=== PATIENT | male | born 1955 | race Caucasian/White ===

== ENCOUNTER 2017-05-31 13:31 | Emergency (ER) | payer SELFPAY ==
[~2017-05-31] VITALS: Ht 167.6 cm; Wt 60.0 kg
[~2017-05-31 13:31] MED LIST: BACT800T5 PO; CEPH500C3 PO
[2017-05-31 13:32] VITALS: BP 158/76; PULSE 97; RESP 14; TEMP 97.7; O2SAT 97
[2017-05-31] MEDS ORDERED: BACT800T5 PO (14:56)
--- NOTE | 2017-05-31 14:56 | PD ---
HPI Chief Complaint: ENT Complaint Time Seen by Provider: 14:31 Travel History International Travel<30 days: No Contact w/Intl Traveler<30days: No Traveled to known affect area: No History of Present Illness HPI 62-year-old male presents to the emergency department with complaint of blood coming from his ear with worsening over the past 2 days. Said he stuck a Q-tip in his ear the other day and since then he has seen a little bit of blood on the tip of his finger. This morning when he woke up he noticed blood on his pillow. He says he thinks there was a small piece of glass on the Q-tip when he used it. Reports history of cerumen impaction and uses an ear wax remover. Reports history of left tympanic membrane rupture as a child. he denies fever, vomiting, change in hearing, ear pain, sore throat, nasal congestion. Reports his ear feels clogged. No known aggravating or relieving factors. Symptoms are mild in severity. Primary care provider is the [place] [facility]. No known allergies. Denies significant past medical history. Has no other medical complaints. No other modifying factors or associated signs and symptoms. PFSH Past Medical History Arthritis: Yes Tetanus Vaccination: < 5 Years ?: Not Past Surgical History Surgical History: No Previous Surgery Social History Alcohol Use: Yes (BEER RUM DAILY) Tobacco Use: Yes (1 PPD) Substance Use: Yes (MARIJUANA) Allergies-Medications (Allergen,Severity, Reaction): Coded Allergies: No Known Allergies (Unverified Adverse Reaction, Unknown, 05/31/17) Reported Meds & Prescriptions Reported Meds & Active Scripts Active Bactrim DS (Sulfamethoxazole-Trimethoprim) 800-160 Mg Tab 1 Tab PO BID 7 Days Review of Systems Except as stated in HPI: all other systems reviewed are Neg Physical Exam Narrative GENERAL: Well-nourished, well-developed male patient, in no acute distress; afebrile, nontoxic-appearing SKIN: Warm and dry. No rash. HEAD: Atraumatic. Normocephalic. EYES: Pupils equal and round. No scleral icterus. No injection or drainage. ENT: Mucosa pink and moist. No erythema or exudates. No uvular edema. No uvular , palatal, or tonsillar deviation. Airway patent. EARS: Bilateral pinnae and external canals appear within normal limits. Bilateral tympanic membranes without erythema, dullness or perforation; scarring noted to the left TM. Left ear canal with bright red drainage noted; erythema noted to the lower aspect of the ear canal. NECK: Trachea midline. No lymphadenopathy. CARDIOVASCULAR: Regular rate RESPIRATORY: No accessory muscle use. GASTROINTESTINAL: Flat. MUSCULOSKELETAL: No obvious deformities. No clubbing. No cyanosis. No edema. NEUROLOGICAL: Awake and alert. Oriented 3. No obvious cranial nerve deficits. Motor grossly within normal limits. Normal speech. Moves all extremities. 5/5 strength to all extremities. PSYCHIATRIC: Appropriate mood and affect; insight and judgment normal. Data Data Last Documented VS Vital Signs Date Time Temp Pulse Resp B/P (MAP) Pulse Ox O2 Delivery O2 Flow Rate FiO2 05/31/17 13:32 97.7 97 14 158/76 (103) 97 Orders Orders Ed Discharge Order (05/31/17 14:57) [facility] Medical Decision Making Medical Screen Exam Complete: Yes Emergency Medical Condition: Yes Medical Record Reviewed: Yes Differential Diagnosis Cerumen impaction, trauma to the ear canal, eardrum perforation, bleeding from left ear Narrative Course 62-year-old male with bleeding from his left ear. I removed a small clump of bloody, wax from his ear. I cannot determine the source of where the bleeding is coming from. The tympanic membrane is intact and without perforation. I discussed not putting anything in the ear and following up with ENT as needed. I do not see any signs of infection and feel that antibiotics are not necessary , but the patient feels better taking antibiotics and is requesting a prescription. Bactrim prescribed for home secondary to soft tissue injury and/ or infection of the ear canal. Instructed patient to follow up with primary care provider. Patient verbalizes understanding and agreement with treatment plan. Patient is medically cleared and stable for discharge. Discussed reasons to return to the emergency department. Patient agrees with treatment plan. The patients vital signs are stable and the patient is stable for outpatient follow-up and treatment. Patient discharged home, stable and in no acute distress. Diagnosis Primary Impression: Bleeding from left ear Referrals: Ear / Nose / Throat Specialist Primary Care Physician Patient Instructions: General Instructions Additional Instructions: Ibuprofen or Tylenol as directed and as needed to reduce pain and fever [id number] antihistamines or decongestants as directed and as needed for symptom management Avoid getting water in the ears Do not put anything in the ears; including Q-tips Follow-up with primary care provider Follow-up with ear nose throat specialist as needed Return to the emergency department immediately with worsening of symptoms Med/Other Pt SpecificInfo: Prescription(s) given Scripts Sulfamethoxazole-Trimethoprim (Bactrim DS) 800-160 Mg Tab 1 TAB PO BID for Infection for 7 Days, #14 TAB 0 Refills Prov: Shannon Salazar 05/31/17 Disposition: 01 DISCHARGE HOME Condition: Stable Shannon Salazar May 31, 2017 14:56
== END 2017-05-31 15:26 | disposition home or self-care (01) ==
LOC: NEPK 13:31
DX: H92.22 Otorrhagia, left ear (principal); H61.22 Impacted cerumen, left ear; F17.200 Nicotine dependence, unspecified, uncomplicated
CPT/HCPCS: 69210